=== PATIENT | male | born 1995 | race Caucasian/White ===

== ENCOUNTER 2023-10-05 22:25 | Emergency (ER) | payer OTHER ==
[~2023-10-05] VITALS: Ht 154.9 cm; Wt 56.7 kg
[2023-10-05 22:36] VITALS: BP 120/82; PULSE 119; RESP 18; TEMP 97; O2SAT 98
[2023-10-05 22:58] VITALS: BP 120/82; PULSE 119; RESP 18; TEMP 98.2; O2SAT 98
== END 2023-10-05 22:58 ==
LOC: MED 22:25
DX: Z02.89 Encounter for other administrative examinations (principal); V49.88XA Car occupant (driver) (passenger) injured in other specified transport accidents, initial encounter; Y93.89 Activity, other specified; Y92.89 Other specified places as the place of occurrence of the external cause; Y99.8 Other external cause status
CPT/HCPCS: 99283